=== PATIENT | female | born 1995 | race Caucasian/White ===

== ENCOUNTER 2020-09-10 07:56 | Emergency (ER) | payer SELFPAY ==
--- NOTE | 2020-09-10 08:17 | EDM.PDOC ---
ED HPI GENERAL MEDICAL PROBLEM - General Chief Complaint: Lower Extremity Injury/Pain Stated Complaint: AMB. Time Seen by Provider: 09/10/20 08:10 Source of Information: Reports: Patient History Limitations: Reports: No Limitations - History of Present Illness INITIAL COMMENTS - FREE TEXT/NARRATIVE: Patient is a 25-year-old female who presents today for left knee pain. Patient states she was drinking earlier this morning when she began to walk she took a fall that her knee gave out. Patient denies directly landing on the knee. Patient has had pain when trying to flex the knee. Patient states she was able to put some weight on it. Patient has no pain to touch of the knee. Patient denies any other injuries or complaints. Left Knee Pain Score (Numeric/FACES): 4 - Related Data Allergies Allergy/AdvReac Type Severity Reaction Status Date / Time No Known Allergies Allergy Verified 09/10/20 07:58 Home Meds: Home Meds . [No Known Home Meds] 09/10/20 [History] Past Medical History - Past Health History Medical/Surgical History: Denies Medical/Surgical History - Infectious Disease History Infectious Disease History: Reports: Chicken Pox Social & Family History - Tobacco Use Tobacco Use Status *Q: Current Every Day Tobacco User Years of Tobacco use: 3 Packs/Tins Daily: 0.2 - Caffeine Use Caffeine Use: Reports: Soda - Recreational Drug Use Recreational Drug Use: No Review of Systems - Review of Systems Review Of Systems: See Below Constitutional: Reports: No Symptoms Eyes: Reports: No Symptoms Ears: Reports: No Symptoms Nose: Reports: No Symptoms Mouth/Throat: Reports: No Symptoms Respiratory: Reports: No Symptoms Cardiovascular: Reports: No Symptoms GI/Abdominal: Reports: No Symptoms Genitourinary: Reports: No Symptoms Musculoskeletal: Reports: Leg Pain Skin: Reports: No Symptoms Neurological: Reports: No Symptoms Psychiatric: Reports: No Symptoms ED EXAM, GENERAL - Physical Exam Exam: See Below Exam Limited By: No Limitations General Appearance: Alert, WD/WN Respiratory/Chest: No Respiratory Distress Cardiovascular: Normal Peripheral Pulses Peripheral Pulses: 2+: Posterior Tibial (L), Posterior Tibial (R), Dorsalis Pedis (L), Dorsalis Pedis (R) Extremities: Normal Inspection, Non-Tender, No Pedal Edema. No: Normal Range of Motion (pain with flexion of knee) Neurological: Alert, Oriented, Normal Cognition Course - Vital Signs Last Recorded V/S: Last Vital Signs Temp 97 F 09/10/20 07:59 Pulse 82 09/10/20 09:00 Resp 17 09/10/20 09:00 BP 152/63 H 09/10/20 09:00 Pulse Ox 98 09/10/20 09:00 - Orders/Labs/Meds Orders: Active Orders 24 hr Category Date Time Status DME for Discharge [COMM] Stat Oth 09/10/20 09:13 Ordered - Re-Assessments/Exams Free Text/Narrative Re-Assessment/Exam: 09/10/20 09:16 X-rays are negative for fractures or dislocation. Patient still has some pain with flexion. Does not seem to be any ligament damage. Will place in a knee immobilizer and give crutches. We will have patient follow-up orthopedics on Sunday. Patient also has good pulses and good warmth of the leg. What you are ordering knee immobilizer and crutches Why you are ordering it knee sprain difficultly ambulating How it will benefit patient Assist with ambulation How long is patient to use it 7-14days Departure - Departure Time of Disposition: :18 Disposition: Home, Self-Care 01 Condition: Good Clinical Impression: Knee sprain - Discharge Information *PRESCRIPTION DRUG MONITORING PROGRAM REVIEWED*: Not Applicable *COPY OF PRESCRIPTION DRUG MONITORING REPORT IN PATIENT ENID: Not Applicable Instructions: Knee Sprain, Adult, [id number] Forms: ED Department Discharge Additional Instructions: The following information is given to patients seen in the emergency department who are being discharged to home. This information is to outline your options for follow-up care. We provide all patients seen in our emergency department with a follow-up referral. The need for follow-up, as well as the timing and circumstances, are variable depending upon the specifics of your emergency department visit. If you don't have a primary care physician on staff, we will provide you with a referral. We always advise you to contact your personal physician following an emergency department visit to inform them of the circumstance of the visit and for follow-up with them and/or the need for any referrals to a consulting specialist. The emergency department will also refer you to a specialist when appropriate. This referral assures that you have the opportunity for follow-up care with a specialist. All of these measure are taken in an effort to provide you with optimal care, which includes your follow-up. Under all circumstances we always encourage you to contact your private physician who remains a resource for coordinating your care. When calling for follow-up care, please make the office aware that this follow-up is from your recent emergency room visit. If for any reason you are refused follow-up, please contact the [facility] Emergency Department at and asked to speak to the emergency department charge nurse. Please follow up with your primary care physician. If you do not have a primary care physician, see below: [facility] Professional Building [address] [place] [address], [address] [place] [address] Follow-up with the orthopedic department this Sunday. You have any increased pain numbness to the leg please return to the ED. Sepsis Event Note (ED) - Evaluation Sepsis Screening Result: No Definite Risk - Focused Exam Vital Signs: Vital Signs Temp Pulse Resp BP Pulse Ox 09/10/20 09:00 82 17 152/63 H 98 09/10/20 07:59 97 F 91 18 141/97 H 97 - My Orders Last 24 Hours: My Active Orders 09/10/20 09:13 DME for Discharge [COMM] Stat - Assessment/Plan Last 24 Hours: My Active Orders 09/10/20 09:13 DME for Discharge [COMM] Stat Assessment:: Patient is a 25-year-old female presents today for left knee pain. Patient states that her knee gave out and she took a fall. Patient has limited range of motion with flexion due to pain. Will obtain x-rays and reassess. Patient not require any pain meds at this time.
--- NOTE | 2020-09-10 08:55 | CR ---
INDICATION: Pain and limited range of motion to knee. Status post fall. TECHNIQUE: Four views left knee. FINDINGS: No acute fracture or dislocation in left knee. The medial compartment of the left knee is slightly narrowed compared to the lateral compartment. Left knee otherwise negative. Dictated by Antwon Simmons MD @ Sep 10 2020 8:52AM Signed by Dr. Antwon Simmons @ Sep 10 2020 8:52AM
== END 2020-09-10 09:44 | disposition home or self-care (01) ==
LOC: MW.ED 07:56
DX: S83.92XA Sprain of unspecified site of left knee, initial encounter (principal); F17.210 Nicotine dependence, cigarettes, uncomplicated; W19.XXXA Unspecified fall, initial encounter
CPT/HCPCS: 73562-26-LT; 73562-LT; 99283; 99284